=== PATIENT | male | born 1965 | race Caucasian/White ===

== ENCOUNTER 2020-10-12 08:29 | Emergency (ER) | payer OTHER, BC, SELFPAY ==
--- NOTE | ~2020-10-12 | XR_ITS ---
EXAMINATION: XR wrist RT min 3V EXAM DATE: 10/12/2020 09:45 INDICATION: Chronic wrist pain. TECHNIQUE: Right wrist frontal, frontal with ulnar deviation, oblique and lateral projections obtain ed and reviewed. There is no prior study for comparison. FINDINGS: Right wrist scapholunate joint space is maintained. Complete fusion of most of the carpal b ones probably except the trapezium. This may be a congenital appearance. Scaphoid appears to be absen t, may have been surgically resected, correlate with history. Moderate osteoarthritis at the radial l unate articulation. There are no bony erosions identified. There are no acute fractures identified. N o radiopaque foreign bodies identified. IMPRESSION: 1. 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 4. No acute right wrist findings. Reviewed, dictated and finalized at location A.
--- NOTE | ~2020-10-12 | XR_ITS ---
XR ankle LT min 3V, XR foot LT min 3V 10/12/2020 08:57 Indication: Left ankle pain and swelling Procedure: 4 views left ankle and 4 views left foot Comparison: No prior studies for comparison. Findings: No acute fracture, subluxation or dislocation. There is heterotopic ossification in the exp ected location of the Achilles tendon. There are degenerative calcaneal enthesophytes. There is moder ate medial soft tissue swelling. Ankle mortise intact. Talar dome is within normal limits. No evidenc e for osteochondral defect. Impression: 1: No acute bone or joint abnormality. Reviewed, dictated and finalized at location B. Impression: 1: No acute bone or joint abnormality. Impression: 1: No acute bone or joint abnormality.
[2020-10-12 08:33] VITALS: BP 149/101; PULSE 89; RESP 20; TEMP 36.6; O2SAT 99
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
[2020-10-12] MEDS: IBUPROFEN 600 MG TABLET PO (10:13)
[2020-10-12] MEDS: HYDROcodone/acetaminophen (*CRX) 5-325 MG TABLET 1 TAB PO (10:13)
[2020-10-12 10:46] VITALS: BP 153/112; O2SAT 98
[2020-10-12 11:41] VITALS: BP 145/105; O2SAT 100
[2020-10-12 11:55] VITALS: BP 145/105; PULSE 81; RESP 18; O2SAT 100
--- NOTE | 2020-10-23 04:48 | PC.NURSE ---
LATE ENTRY Applied short leg splint to left leg, distal pulses intact. This note is being entered to document information to the patient's record. The following information was omitted on [10/23/20 ], by [Sola Eagle RN].
== END 2020-10-12 11:55 | disposition home or self-care (01) ==
PROVIDERS: Emergency Provider Emergency Medicine
DX: S86.012A Strain of left Achilles tendon, initial encounter (principal); M19.031 Primary osteoarthritis, right wrist; Y03.0XXA Assault by being hit or run over by motor vehicle, initial encounter
CPT/HCPCS: 29515; 73110; 73610; 73630; 99284; A9270

== ENCOUNTER 2020-11-07 07:50 | Outpatient (CLI) | payer BC, SELFPAY ==
--- NOTE | ~2020-11-07 | MR_ITS ---
EXAMINATION: MR ankle LT wo con DATE: 11/07/2020 08:46 INDICATION: Achilles tendinitis. TECHNIQUE: Magnetic resonance imaging (MRI) of the left ankle was performed without intravenous contr ast. Sequences included sagittal PD-weighted FS FSE, sagittal PD-weighted FSE, coronal PD-weighted FS FSE, coronal PD-weighted FSE, axial PD-weighted FS FSE, and axial PD-weighted FSE. COMPARISON: Left ankle radiographs 10/12/2020 FINDINGS: Medial ankle ligaments: There are changes of prior sprain of the deltoid ligament characterized by thickening and increased s ignal intensity in the superficial component, but sensitivity and specificity are decreased by motion artifact. The deep components of the deltoid ligament is intact. Lateral ankle ligaments: There are changes of prior sprain of anterior talofibular ligament and calcaneofibular ligament lizzie cterized by thickening and increased signal intensity, but sensitivity and specificity are decreased by motion artifact. Posterior talofibular ligament is normal. Anterior and posterior tibiofibular lig aments are intact. Tendons: The medial and anterior ankle tendons and peroneal tendons are normal. There is a complete tear of th e Achilles tendon. The anterior Achilles tendon fibers are torn 5.3 cm proximal to the distal inserti on with 1.0 cm tendon gap. The posterior Achilles tendon fibers are torn at the distal insertion with 3.5 cm retraction of the fibers. Plantar fascia: There is thickening and increased signal involving the central band of the plantar fascia, consistent with fasciitis. There is an enthesophyte at the calcaneal attachment. Bones/other: Bone alignment is normal. No fracture. The talar dome is normal. Fluid: There is a small subtalar joint effusion. There is subcutaneous edema about the ankle. IMPRESSION: 1. Complete tear of Achilles tendon. 2. Plantar fasciitis. 3. Changes of prior medial and lateral ankle sprains. Reviewed, dictated and finalized at location B.
== END 2020-11-07 07:51 | disposition home or self-care (01) ==
PROVIDERS: Visit Provider Orthopaedic Surgery
DX: S86.012A Strain of left Achilles tendon, initial encounter (principal); M72.2 Plantar fascial fibromatosis
CPT/HCPCS: 73721